=== PATIENT | female | born 1970 | race Caucasian/White ===

== ENCOUNTER → 2017-06-08 | Day surgery (SDC) | payer OTHER ==
--- NOTE | 2017-06-08 15:49 | RADIOLOGY REPORT (SQ) ---
EXAM DESCRIPTION: ARTHRO SHOULDER INJECTION; FLUORO/NEEDLE PLACEMENT COMPLETED DATE/TIME: 06/08/2017 2:07 pm REASON FOR STUDY: PAIN IN LEFT SHOULDER (M25.512) M25.512 PAIN IN LEFT SHOULDER COMPARISON: CT arthrogram same date FLUOROSCOPY TIME: 15 seconds 1 digital left shoulder image saved to PACS. LIMITATIONS: None. PROCEDURE: Procedure, risks, benefits and alternatives explained to patient who then gave written co nsent. The posterior left shoulder was marked and a time out was called for correct procedure verific ation. Posterior entry site marked using fluoroscopic guidance. Shoulder prepped and draped using s terile technique. Local anesthesia achieved using 9 mL of 1% lidocaine injection. 22 gauge spinal n eedle introduced into the joint space under direct fluoroscopic visualization. Non-ionic contrast ins tilled to confirm intra-articular position. Dilute gadolinium solution then injected. Needle removed and entry site covered with sterile bandage. No immediate complications noted. TECHNIQUE: Digital images acquired during fluoroscopy and stored on PACS. Patient immediately take n to the MR suite for additional imaging. INJECTION LOCATION: Left posterior glenohumeral joint CONTRAST TYPE AND AMOUNT: 1 mL of Isovue-300 was injected to confirm intra-articular needle placement followed by 12 mL of dilute Isovue-[address] shoulder arthrogram IMPRESSION: SUCCESSFUL NEEDLE PLACEMENT AND INJECTION FOR LEFT SHOULDER MR ARTHROGRAM USING POSTERIO R APPROACH. COMMENT: Quality ID 145: Final reports for procedures using fluoroscopy that document radiation exp osure indices, or exposure time and number of fluorographic images (if radiation exposure indices are not available) TECHNICAL DOCUMENTATION: JOB ID: [id number] [employer]- All Rights Reserved
--- NOTE | 2017-06-08 15:56 | RADIOLOGY REPORT (SQ) ---
EXAM DESCRIPTION: CT LT UPPER EXTREMITY WITH COMPLETED DATE/TIME: 06/08/2017 2:11 pm REASON FOR STUDY: PAIN IN LEFT SHOULDER (M25.512) M25.512 PAIN IN LEFT SHOULDER COMPARISON: None. TECHNIQUE: Axial imaging performed through the leftshoulder with reformatted oblique coronal and obl ique sagittal imaging windowed for bone and soft tissues. CT scanning was performed immediately after left shoulder arthrogram from posterior approach All CT scanners at this facility use dose modulation, iterative reconstruction, and/or weight based d osing when appropriate to reduce radiation dose to as low as reasonably achievable (ALARA). [facility]: Dose Right [facility]: CareDose [facility]: Dose Right [facility]: Teradose 4D [facility]: Smart SurDoc RADIATION DOSE: Up-to-date CT equipment and radiation dose reduction techniques were employed. CTDIv ol: 7.7 mGy. DLP: 182 mGy-cm. mGy. LIMITATIONS: None. FINDINGS: SOFT TISSUES: Normal. No masses or adenopathy BONY ARCHITECTURE: Normal bone density. No lytic or blastic lesions. No fracture GLENOHUMERAL JOINT: No significant chondromalacia stir or joint space narrowing. No bony spurring. Normal alignment ACROMION AND AC JOINT: Type 2 acromion with minimal bony spurring along the undersurface of the acrom ion, best shown on sagittal series 300, image 43. Acromioclavicular joint intact. No bulky AC joint bony spurring ROTATOR CUFF: Small full-thickness tear posterior aspect supraspinatus tendon near the greater tubero sity, best shown on sagittal series 300 image 47, and coronal series 301 image 23. GLENOID, LABRUM AND BICEPS: Sublabral foramen, an anatomic variant axial image 23-28. Intra-articula r long head biceps tendon grossly intact. No paralabral cysts. OTHER: No other significant finding. IMPRESSION: Small infraspinatus distal tendon tear at the greater tuberosity left humeral had Sublabral foramen. No gross labral tear or paralabral cysts. TECHNICAL DOCUMENTATION: JOB ID: [id number] Quality ID # [id number]: Final reports with documentation of one or more dose reduction techniques (e.g., Au tomated exposure control, adjustment of the mA and/or kV according to patient size, use of iterative reconstruction technique) 2010 [employer]- All Rights Reserved
== END ==
LOC: RAD 12:48
PROVIDERS: ATTEND Orthopaedic Surgery
PROC: BP09ZZZ Plain Radiography of Left Shoulder (ICD-10-PCS; principal; 2017-06-08)
DX: M75.122 Complete rotator cuff tear or rupture of left shoulder, not specified as traumatic (principal); M25.512 Pain in left shoulder
CPT/HCPCS: 23350; 77002

== ENCOUNTER → 2018-02-09 | Outpatient (CLI) | payer OTHER ==
[2018-02-09 08:08] LABS: ABSOLUTE EOSINOPHILS # (AUTO) 0.1 10^3/uL (0.0-0.6); ABSOLUTE LYMPHOCYTES (AUTO) 1.5 10^3/uL (0.5-4.7); ABSOLUTE MONOCYTES (AUTO) 0.5 10^3/uL (0.1-1.4); ABSOLUTE NEUT (AUTO) 3.2 10^3/uL (1.7-8.2); BASOPHILS % (AUTO) 0.8 % (0-2); EOSINOPHILS % (AUTO) 1.1 % (0-6); HEMATOCRIT 40.4 % (36.0-47.0); LYMPHOCYTES % (AUTO) 27.6 % (13-45); MEAN CORPUSCULAR HEMOGLOBIN 30.5 pg (27.0-33.4); MEAN CORPUSCULAR HGB CONC 34.5 g/dL (32.0-36.0); MEAN CORPUSCULAR VOLUME 88 fl (80-97); MONOCYTES % (AUTO) 9.4 % (3-13); PLATELET COUNT 218 10^3/uL (150-450); RED BLOOD COUNT 4.58 10^6/uL (3.72-5.28); RED CELL DISTRIBUTION WIDTH 13.1 % (11.5-14.0); SEGMENTED NEUTROPHILS % (AUTO) 61.1 % (42-78); TOTAL CELLS COUNTED % (AUTO) 100 %; WHITE BLOOD COUNT 5.3 10^3/uL (4.0-10.5)
[2018-02-09 08:17] LABS: ALANINE AMINOTRANSFERASE 31 U/L (9-52); ALBUMIN 3.8 g/dL (3.5-5.0); ALKALINE PHOSPHATASE 79 U/L (38-126); ANION GAP 10 (5-19); ASPARTATE AMINO TRANSFERASE 24 U/L (14-36); BILIRUBIN,DIRECT 0.3 mg/dL (0.0-0.4); BILIRUBIN,TOTAL 0.8 mg/dL (0.2-1.3); BLOOD UREA NITROGEN 15 mg/dL (7-20); CALCIUM 9.1 mg/dL (8.4-10.2); CARBON DIOXIDE 22 mmol/L (22-30); CHLORIDE 107 mmol/L (98-107); GLUCOSE 94 mg/dL (75-110); POTASSIUM 4.6 mmol/L (3.6-5.0); SODIUM 139.4 mmol/L (137-145); TOTAL PROTEIN 6.9 g/dL (6.3-8.2)
== END ==
LOC: OD 07:21
PROVIDERS: ATTEND Family Medicine
DX: Z79.899 Other long term (current) drug therapy (principal)
CPT/HCPCS: 36415; 80053; 85025

== ENCOUNTER 2018-05-24 13:21 | Emergency (ER) | payer OTHER ==
[2018-05-24] MEDS ORDERED: DIPHENHYDRAMINE HCL 50 MG/ML VIAL IV ONE (14:18)
[2018-05-24] MEDS ORDERED: NORMAL SALINE 1000 ML 1,000 ML IV ONE (14:19)
[2018-05-24] MEDS ORDERED: METOCLOPRAMIDE HCL INJ/PF 10 MG/2 ML SDV IV ONE (14:19)
--- NOTE | 2018-05-24 14:22 | ER Document Report ---
ED Medical Screen (RME) - General Chief Complaint: Headache Stated Complaint: DIZZINESS/HEADACHE Time Seen by Provider: 05/24/18 14:15 Mode of Arrival: Ambulatory Information source: Patient Notes: 48-year-old female presents emergency department with complaints of a headache, blurred vision, spots in her vision. Patient states that the headache occurred while she was at work. She describes it as an aching sensation behind the right eye. She denies any radiation of the pain. She denies any alleviating or exacerbating factors. Patient states that she then began having blurred vision and seeing spots in her vision. She went to urgent care and was sent to the emergency department with concern for possible CVA. They wanted a head CT to be done. Patient denies any slurred speech, numbness, tingling. Patient admits to RLE weakness that has resolved. I have greeted and performed a rapid initial assessment of this patient. A comprehensive ED assessment and evaluation of the patient, analysis of test results and completion of the medical decision making process will be conducted by additional ED providers. PHYSICAL EXAMINATION: GENERAL: Well-appearing, well-nourished and in no acute distress. HEAD: Atraumatic, normocephalic. EYES: Pupils equal round extraocular movements intact, conjunctiva are normal. No nystagmus. ENT: Nares patent NECK: Normal range of motion LUNGS: No respiratory distress Musculoskeletal: Normal range of motion NEUROLOGICAL: Normal speech, No facial droop. PSYCH: Normal mood, normal affect. SKIN: Warm, Dry, normal turgor, no rashes or lesions noted. TRAVEL OUTSIDE OF THE [place] IN LAST 30 DAYS: No - Related Data Allergies/Adverse Reactions: No Known Allergies Allergy (Unverified 05/24/18 13:31) Physical Exam - Vital signs Vitals: Temp Pulse Resp BP Pulse Ox 98.9 F 84 16 127/88 H 94 05/24/18 13:32 05/24/18 13:32 05/24/18 13:32 05/24/18 13:32 05/24/18 13:32 Course - Vital Signs Vital signs: Temp Pulse Resp BP Pulse Ox 98.9 F 84 16 127/88 H 94 05/24/18 13:32 05/24/18 13:32 05/24/18 13:32 05/24/18 13:32 05/24/18 13:32 Doctor's Discharge - Discharge Referrals: JAILYN JERRY MD [Primary Care Provider] - Follow up as needed
--- NOTE | 2018-05-24 15:32 | ER Document Report ---
ED General - General Chief Complaint: Headache Stated Complaint: DIZZINESS/HEADACHE Time Seen by Provider: 05/24/18 14:15 Mode of Arrival: Ambulatory TRAVEL OUTSIDE OF THE [place] 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 She is never had anything like this in the past but has had headaches before. She did not take anything prior to arrival and currently other than a low-grade headache she says that she feels at her baseline level. Denies recent illnesses , fevers chills or otherwise. - Related Data Allergies/Adverse Reactions: No Known Allergies Allergy (Unverified 05/24/18 13:31) Past Medical History - General Information source: Patient - Social History Smoking Status: Never Smoker Family History: None Patient has suicidal ideation: No Patient has homicidal ideation: No Renal/ Medical History: Denies: Hx Peritoneal Dialysis Past Surgical History: Reports: Hx Orthopedic Surgery Review of Systems - Review of Systems -: Yes All other systems reviewed and negative Physical Exam - Vital signs Vitals: Temp Pulse Resp BP Pulse Ox 98.9 F 84 16 127/88 H 94 05/24/18 13:32 05/24/18 13:32 05/24/18 13:32 05/24/18 13:32 05/24/18 13:32 - General General appearance: Appears well, Alert - HEENT Head: Normocephalic, Atraumatic Eyes: Normal Pupils: PERRL - Respiratory Respiratory status: No respiratory distress Chest status: Nontender Breath sounds: Normal Chest palpation: Normal - Cardiovascular Rhythm: Regular Heart sounds: Normal auscultation Murmur: No - Abdominal Inspection: Normal Distension: No distension Bowel sounds: Normal Tenderness: Nontender Organomegaly: No organomegaly - Back Back: Normal, Nontender - Extremities General upper extremity: Normal inspection, Nontender, Normal color, Normal ROM , Normal temperature General lower extremity: Normal inspection, Nontender, Normal color, Normal ROM , Normal temperature, Normal weight bearing. No: Radha's sign - Neurological Neuro grossly intact: Yes Cognition: Normal Orientation: AAOx4 Jose Coma Scale Eye Opening: Spontaneous Jose Coma Scale Verbal: Oriented Kerby Coma Scale Motor: Obeys Commands Kerby Coma Scale Total: 15 Speech: Normal Motor strength normal: LUE, RUE, LLE, RLE Sensory: Normal - Psychological Associated symptoms: Normal affect, Normal mood Course - Re-evaluation Re-evalutation: 05/24/18 18:40 48-year-old female presents for evaluation of a brief visual disturbance in which she also developed a low-grade headache. Her history sounds somewhat as if she felt nauseous then got lightheaded thereafter, this could represent a vagal episode or some other transient event occluding arrhythmia otherwise. She is otherwise totally healthy 48-year-old woman takes no medications and has no known health problems. She is currently neurologically intact and is responded well to medicine for her low-grade headache. She is incredibly well-appearing. She underwent imaging and CT of the head, x-ray, monitoring in the emergency department and 2 troponins, she did not have any arrhythmias while in the emergency department remained neurologically intact. I spoke with the patient about options including further imaging, observation, or tests but because I believe that it is unlikely that she is a suffered a true ischemic event she noted that she has willing and ready to go home at this time her also states they have been ready for the last 2 hours to go home. She is ambulatory without assistance able tolerate p.o., will plan for this patient undergo discharge with return precautions and expectant management and encouragement to follow-up with her primary physician in the coming week for reassessment. - Vital Signs Vital signs: Temp Pulse Resp BP Pulse Ox 98.9 F 84 16 127/88 H 94 05/24/18 13:32 05/24/18 13:32 05/24/18 13:32 05/24/18 13:32 05/24/18 13:32 - Laboratory Result Diagrams: 05/24/18 15:50 05/24/18 15:50 Discharge - Discharge Clinical Impression: Visual disturbance, Light headed Condition: Good Disposition: HOME, SELF-CARE Additional Instructions: You were seen today in the emergency department after you had an episode in which your vision changed. It is possible that this was related to a stroke that we did not see any evidence of this on your blood work today or your CAT scan today. You also had a headache which was treated. Continue to use medications as needed to treat your headache. You should return for any worsening numbness or weakness, pain in the chest or confusion. Otherwise follow-up with your primary physician in the coming week to have them check up on you again. Referrals: JAILYN JERRY MD [Primary Care Provider] - Follow up as needed
--- NOTE | 2018-05-24 15:41 | RADIOLOGY REPORT (SQ) ---
EXAM DESCRIPTION: CT HEAD WITHOUT COMPLETED DATE/TIME: 05/24/2018 2:45 pm REASON FOR STUDY: headache COMPARISON: None. TECHNIQUE: Axial images acquired through the brain without intravenous contrast. Images reviewed wi th bone, brain and subdural windows. Additional sagittal and coronal reconstructions were generated. Images stored on PACS. All CT scanners at this facility use dose modulation, iterative reconstruction, and/or weight based d osing when appropriate to reduce radiation dose to as low as reasonably achievable (ALARA). [facility]: Dose Right [facility]: CareDose [facility]: Dose Right [facility]: Teradose 4D [facility]: Cswitch RADIATION DOSE: mGy. LIMITATIONS: None. FINDINGS: VENTRICLES: Normal size and contour. CEREBRUM: No masses. No hemorrhage. No midline shift. No evidence for acute infarction. Normal gra y/white matter differentiation. No areas of low density in the white matter. CEREBELLUM: No masses. No hemorrhage. No alteration of density. No evidence for acute infarction. EXTRAAXIAL SPACES: No fluid collections. No masses. ORBITS AND GLOBE: No intra- or extraconal masses. Normal contour of globe without masses. CALVARIUM: No fracture. PARANASAL SINUSES: No fluid or mucosal thickening. SOFT TISSUES: No mass or hematoma. OTHER: No other significant finding. IMPRESSION: NORMAL BRAIN CT WITHOUT CONTRAST. EVIDENCE OF ACUTE STROKE: NO. COMMENT: Quality ID # [id number]: Final reports with documentation of one or more dose reduction techniques (e.g., Automated exposure control, adjustment of the mA and/or kV according to patient size, use of iterative reconstruction technique) TECHNICAL DOCUMENTATION: JOB ID: [id number] [employer]- All Rights Reserved Reading location - IP/workstation name: [email or web address]
[2018-05-24 16:05] LABS: ABSOLUTE BASOPHILS # (AUTO) 0.1 10^3/uL (0.0-0.2); ABSOLUTE EOSINOPHILS # (AUTO) 0.1 10^3/uL (0.0-0.6); ABSOLUTE LYMPHOCYTES (AUTO) 1.9 10^3/uL (0.5-4.7); ABSOLUTE MONOCYTES (AUTO) 0.7 10^3/uL (0.1-1.4); ABSOLUTE NEUT (AUTO) 6.1 10^3/uL (1.7-8.2); BASOPHILS % (AUTO) 0.7 % (0-2); EOSINOPHILS % (AUTO) 1.7 % (0-6); HEMATOCRIT 40.1 % (36.0-47.0); HEMOGLOBIN 14.1 g/dL (12.0-15.5); LYMPHOCYTES % (AUTO) 21.1 % (13-45); MEAN CORPUSCULAR HEMOGLOBIN 31.2 pg (27.0-33.4); MEAN CORPUSCULAR HGB CONC 35.3 g/dL (32.0-36.0); MEAN CORPUSCULAR VOLUME 89 fl (80-97); MONOCYTES % (AUTO) 7.5 % (3-13); PLATELET COUNT 237 10^3/uL (150-450); RED BLOOD COUNT 4.53 10^6/uL (3.72-5.28); RED CELL DISTRIBUTION WIDTH 13.2 % (11.5-14.0); TOTAL CELLS COUNTED % (AUTO) 100 %; WHITE BLOOD COUNT 8.9 10^3/uL (4.0-10.5)
[2018-05-24 16:26] LABS: ANION GAP 13 (5-19); BLOOD UREA NITROGEN 12 mg/dL (7-20); CALCIUM 9.1 mg/dL (8.4-10.2); CARBON DIOXIDE 22 mmol/L (22-30); CHLORIDE 106 mmol/L (98-107); GLUCOSE 91 mg/dL (75-110); POTASSIUM 4.4 mmol/L (3.6-5.0); SODIUM 140.6 mmol/L (137-145)
[2018-05-24 18:04] VITALS: BP 107/74
== END 2018-05-24 18:05 | disposition home or self-care (01) ==
LOC: ER 13:21
DX: H53.2 Diplopia (principal); R42 Dizziness and giddiness; R51 Headache
CPT/HCPCS: 99284; 96361; 96374; 96375; 36415; 85025; 80048; 70450; J1200; J2765; J7030